=== PATIENT | female | born 1995 | race African-American/Black ===

== ENCOUNTER 2023-11-21 10:01 | Emergency (ER) | payer OTHER ==
[2023-11-21 10:20] VITALS: BP 117/68; PULSE 84; RESP 17; TEMP 98.4; BMI 28.3
[2023-11-21] MEDS ORDERED: KETOROLAC TROMETHAMINE 30 MG/1 ML VIAL ONE (11:26)
[2023-11-21] MEDS: KETOROLAC TROMETHAMINE 30 MG/1 ML VIAL IM ONE (11:33)
[2023-11-21] MEDS ORDERED: PENICILLIN G BENZATHINE 1,200,000 UNIT/2 ML PFS IM ONE (12:24)
[2023-11-21] MEDS: PENICILLIN G BENZATHINE 1,200,000 UNIT/2 ML PFS IM ONE (12:34)
== END 2023-11-21 12:35 | disposition home or self-care (01) ==
LOC: JERFT 10:01 → JER 10:01 → JERFT 12:35
PROC: 3E02329 Introduction of Other Anti-infective into Muscle, Percutaneous Approach (ICD-10-PCS; principal; 2023-11-21)
PROC: 3E0233Z Introduction of Anti-inflammatory into Muscle, Percutaneous Approach (ICD-10-PCS; 2023-11-21)
DX: J02.0 Streptococcal pharyngitis (principal); H92.02 Otalgia, left ear
CPT/HCPCS: 87651; 99284-25